=== PATIENT | female | born 1995 | race Two or more races ===

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

== ENCOUNTER 2017-04-18 03:37 | Emergency (ER) | payer MEDICAID ==
[2017-04-18 03:49] VITALS: RESP 16; TEMP 98.6
[2017-04-18 03:50] LABS: % IMMATURE GRANULYOCYTES 0.4 % (0.0-1.1); ABSOLUTE IMMATURE GRANULOCYTES 0.05 10^3/uL (0.00-0.10); ADD DIFF? NO; ADD MORPH? NO; ADD SCAN? NO; ATYPICAL LYMPHOCYTE FLAG 10 (0-99); FRAGMENT RBC FLAG 0 (0-99); HEMATOCRIT 44.1 % (38.0-47.0); HEMOGLOBIN 14.1 g/dL (12.6-16.3); LEFT SHIFT FLG 0 (0-99); LIPEMIA HEMOLYSIS FLAG 80 (0-99); MEAN CELL HEMOGLOBIN 26.1 pg (27.9-34.1); MEAN CELL VOLUME 81.7 fL (81.5-99.8); MEAN PLATELET VOLUME 10.7 fL (8.7-11.7); PLATELET CLUMPS FLAG 0 (0-99); PLATELET COUNT 310 10^3/uL (150-400)
--- NOTE | 2017-04-18 03:50 | CPEKG ---
Heart Rate: 65 RR Interval: 923 P-R Interval: 148 QRSD Interval: 78 QT Interval: 372 QTC Interval: 387 P [place]: 57 QRS [place]: 48 T Wave [place]: 45 EKG Severity - NORMAL ECG - EKG Impression: SINUS RHYTHM Electronically Signed By: Tomas Morrison 18-Apr-2017 13:56:48
[2017-04-18 03:58] LABS: ANION GAP 15 mEq/L (8-16); CALCIUM 9.9 mg/dL (8.5-10.4); CARBON DIOXIDE 24 mEq/l (22-31); CHLORIDE 104 mEq/L (97-110); CREATININE 0.8 mg/dL (0.6-1.0); GLOMERULAR FILTRATION RATE > 60; GLUCOSE 103 mg/dL (70-100); POTASSIUM 4.3 mEq/L (3.5-5.2); SODIUM 143 mEq/L (134-144)
[2017-04-18] MEDS ORDERED: NS 1,000 ML IV ONE ×2 (04:35)
--- NOTE | 2017-04-18 04:48 | EDPHY ---
H & P Stated Complaint: pt says was walking to her car, began to feel strange, had syncopal episode Time Seen by Provider: 04/18/17 03:44 HPI/ROS: Chief Complaint: Syncope HPI: 22-year-old woman was out with friends stef. Will walking to her car when she became lightheaded and had a syncopal episode, landing on her face. She is complaining of pain in her mouth and side of her head. Patient denies drinking alcohol this evening. Denies any recent illness. No fevers or chills. No nausea or vomiting. Has otherwise been in her usual state of health. ROS: 10 point Review of Systems is negative except as noted in the HPI. PMH: An autoimmune disorder that she does not know the name of Social History: No smoking, no alcohol, no recreational drug use Family History: non-contributory Physical Exam: Gen: Awake, Alert, No Distress HEENT: Nose: no rhinorrhea Eyes: PERRLA, EOMI Mouth: Moist mucosa she has tenderness with palpation of her left upper incisor but there is no fracture. There is no gingival bleeding or deformity. She has a laceration which is not through and through on her lower lip approximately 5 mm in length. Neck: Supple, no JVD Chest: nontender, lungs clear to auscultation Heart: S1, S2 normal, no murmur Abd: Soft, non-tender, no guarding Back: no CVA tenderness, no midline tenderness Ext: no edema, non-tender Skin: no rash Neuro: CN II-XII intact, Sensation grossly intact, Strength 5/5 in bilateral upper and lower extremities - Personal History Tetanus Vaccine Date: within 10 yrs - Medical/Surgical History Hx Asthma: Yes Hx Chronic Respiratory Disease: No Hx Diabetes: No Hx Cardiac Disease: No Hx Renal Disease: No Hx Cirrhosis: No Hx Alcoholism: No Hx HIV/AIDS: No Hx Splenectomy or Spleen Trauma: No Other PMH: ORTHO SURG. uveitis. depression. "autoimmune blood disorder" - Social History Smoking Status: Current every day smoker Constitutional: Initial Vital Signs Temperature (C) 37 C 04/18/17 03:47 Heart Rate 75 04/18/17 03:47 Respiratory Rate 16 04/18/17 03:47 Blood Pressure 109/61 04/18/17 03:47 O2 Sat (%) 93 04/18/17 03:47 O2 Delivery Mode Room Air Allergies/Adverse Reactions: No Known Allergies Allergy (Verified 04/18/17 03:50) Home Medications: Medication Instructions Recorded Norgestimate-Ethinyl Estradiol 1 each PO DAILY 05/12/16 [Sprintec 28 Day Tablet] Adalimumab [Humira] 10 mg SQ Q14D 10/25/16 Albuterol [Proventil Inhaler HFA 1 - 2 puffs IH DAILY PRN 10/25/16 (*)] Amitriptyline HCl [Elavil] 25 mg PO HS 10/25/16 Folic Acid [Folic Acid 1 MG (*)] 1 mg PO DAILY 10/25/16 Methotrexate Sodium [Rheumatrex] 15 mg PO Q7D 10/25/16 Medical Decision Making - Diagnostics EKG Interpretation: ECG time 3:48 a.m., sinus rhythm with a rate of 65, normal axis, normal intervals, no acute ST or T-wave changes. Impression: Normal ECG Imaging Results: CT scan of the head and face are negative for acute injury per Dr. Deleon. Imaging: Discussed imaging studies w/ calliope player Radiologist ED Course/Re-evaluation: 22-year-old female with a syncopal episode after being out with friends tonight. She denies drinking alcohol. ECG is normal. Laboratory evaluations are unremarkable. CT scan of her head and face are negative for acute bony injury. She has a laceration and some dental pain. She did feel lightheaded when standing was given IV fluids here. She will be discharged with referral for dental follow-up - Data Points Laboratory Results: Laboratory Results 04/18/17 03:30 04/18/17 03:30 04/18/17 04/18/17 04/18/17 03:30 03:30 03:30 WBC 13.87 10^3/uL H 10^3/uL (3.80-9.50) RBC 5.40 10^6/uL H 10^6/uL (4.18-5.33) Hgb 14.1 g/dL g/dL (12.6-16.3) Hct 44.1 % % (38.0-47.0) MCV 81.7 fL fL (81.5-99.8) MCH 26.1 pg L pg (27.9-34.1) MCHC 32.0 g/dL L g/dL (32.4-36.7) RDW 15.0 % % (11.5-15.2) Plt Count 310 10^3/uL 10^3/uL (150-400) MPV 10.7 fL fL (8.7-11.7) Neut % (Auto) 73.3 % % (39.3-74.2) Lymph % (Auto) 21.7 % % (15.0-45.0) [place] % (Auto) 3.7 % L % (4.5-13.0) Eos % (Auto) 0.6 % % (0.6-7.6) Baso % (Auto) 0.3 % % (0.3-1.7) Nucleat RBC Rel Count 0.0 % % (0.0-0.2) Absolute Neuts (auto) 10.17 10^3/uL H 10^3/uL (1.70-6.50) Absolute Lymphs (auto) 3.01 10^3/uL H 10^3/uL (1.00-3.00) Absolute Monos (auto) 0.51 10^3/uL 10^3/uL (0.30-0.80) Absolute Eos (auto) 0.09 10^3/uL 10^3/uL (0.03-0.40) Absolute Basos (auto) 0.04 10^3/uL 10^3/uL (0.02-0.10) Absolute Nucleated RBC 0.00 10^3/uL 10^3/uL (0-0.01) Immature Gran % 0.4 % % (0.0-1.1) Immature Gran # 0.05 10^3/uL 10^3/uL (0.00-0.10) Sodium 143 mEq/L mEq/L (134-144) Potassium 4.3 mEq/L mEq/L (3.5-5.2) Chloride 104 mEq/L mEq/L (97-110) Carbon Dioxide 24 mEq/l mEq/l (22-31) Anion Gap 15 mEq/L mEq/L (8-16) BUN 16 mg/dL mg/dL (7-23) Creatinine 0.8 mg/dL mg/dL (0.6-1.0) Estimated GFR > 60 Glucose 103 mg/dL H mg/dL (70-100) Calcium 9.9 mg/dL mg/dL (8.5-10.4) Beta HCG, Qual NEGATIVE Medications Given: Discontinued Medications Sodium Chloride (Ns) 1,000 mls @ 0 mls/hr IV ONCE ONE PRN Reason: Wide Open Stop: 04/18/17 04:36 Last Admin: 04/18/17 04:38 Dose: 1,000 mls Sodium Chloride (Ns) 1,000 mls @ 0 mls/hr IV ONCE ONE PRN Reason: Wide Open Stop: 04/18/17 04:36 Last Admin: 04/18/17 04:39 Dose: 1,000 mls Departure - Departure Disposition: Home, Routine, Self-Care Clinical Impression: Syncope, Dental trauma, Lip laceration Condition: Good Instructions: Acute Dental Trauma (ED), Laceration Without Closure (ED), Syncope (ED) Additional Instructions: Follow up with a dentist in the next 2-3 days. Return to the emergency depart for increasing lightheadedness, fainting, nausea , vomiting, chest pain, shortness of breath, or any other concerns. Referrals: [facility] [Outside] - As per Instructions
[2017-04-18 06:09] VITALS: BP 94/63; PULSE 71; O2SAT 93
== END 2017-04-18 06:10 | disposition home or self-care (01) ==
LOC: EDUNIT#
DX: S01.511A Laceration without foreign body of lip, initial encounter (principal); R55 Syncope and collapse; J45.909 Unspecified asthma, uncomplicated; F17.200 Nicotine dependence, unspecified, uncomplicated; W18.39XA Other fall on same level, initial encounter; Y99.8 Other external cause status; Y93.01 Activity, walking, marching and hiking

== ENCOUNTER 2017-05-18 08:27 | Emergency (ER) | payer MEDICAID ==
[2017-05-18 08:33] VITALS: TEMP 97.5
[2017-05-18] MEDS ORDERED: NS 1,000 ML IV ONE (09:01)
[2017-05-18] MEDS ORDERED: ONDANSETRON 4 MG/2 ML VIAL IVP ONE ×2 (09:01→10:26)
--- NOTE | 2017-05-18 09:28 | EDPHY ---
H & P Time Seen by Provider: 05/18/17 09:00 HPI/ROS: CHIEF COMPLAINT: Abdominal pain, vomiting HISTORY OF PRESENT ILLNESS: 22-year-old female presents with abdominal pain and vomiting. She awoke at 5:00 a.m. this morning with epigastric pain, followed by multiple episodes of vomiting. The epigastric pain is moderate and persistent. Unable to tolerate oral fluids. No fever and no diarrhea. No previous similar symptoms. Last menstrual period 1 month ago and regular. REVIEW OF SYSTEMS: Constitutional: No fever, no chills Eyes: No visual changes ENT: No sore throat Respiratory: No cough, no shortness of breath Cardiac: No chest pain Genitourinary: No hematuria, no dysuria Musculoskeletal: No leg pain or swelling Skin: No rash Neurological: No headache, no weakness Psychiatric: No depression Past Medical/Surgical History: Depression Social History: No recent alcohol No drug use PCP: Dr. Linh michel Ripley Smoking Status: Current every day smoker Physical Exam: General Appearance: Alert, appears uncomfortable Eyes: Pupils equal and round, no conjunctival pallor or injection ENT, Mouth: Mucous membranes moist Neck: Normal inspection Respiratory: Lungs are clear to auscultation Cardiovascular: Regular rate and rhythm Gastrointestinal: Abdomen is soft, epigastric tenderness, no peritoneal signs Neurological: A&O, nonfocal exam Skin: Warm and dry, no rash Extremities: Nontender, no pedal edema Psychiatric: Mood and affect normal Constitutional: Initial Vital Signs Temperature (C) 36.4 C 05/18/17 08:30 Heart Rate 86 05/18/17 08:30 Respiratory Rate 18 05/18/17 08:30 Blood Pressure 115/77 05/18/17 08:30 O2 Sat (%) 96 05/18/17 08:30 O2 Delivery Mode Room Air Allergies/Adverse Reactions: No Known Allergies Allergy (Verified 05/18/17 08:29) Home Medications: Medication Instructions Recorded Ondansetron Odt [Zofran Odt 4 mg 4 mg PO Q4 PRN #6 tab 05/18/17 (*)] Medical Decision Making ED Course/Re-evaluation: IV normal saline 1 L and Zofran 4 mg IV given. 10:30 a.m.-I reassessed this patient. She feels somewhat better. Continues to have nausea. Abdominal exam remains benign. Repeat dose of Zofran 4 mg IV given, followed by Phenergan 12.5mg IV. Better after meds, abd exam remains benign. Bakari oral fluids well. Differential Diagnosis: Differential diagnosis includes though it is not limited to appendicitis, cholecystitis, diverticulitis, pyelonephritis, bowel perforation, small bowel obstruction. - Data Points Laboratory Results: Laboratory Results 05/18/17 09:10 05/18/17 09:10 05/18/17 05/18/17 05/18/17 09:10 09:10 09:10 WBC 11.73 10^3/uL H 10^3/uL (3.80-9.50) RBC 5.26 10^6/uL 10^6/uL (4.18-5.33) Hgb 14.0 g/dL g/dL (12.6-16.3) Hct 42.7 % % (38.0-47.0) MCV 81.2 fL L fL (81.5-99.8) MCH 26.6 pg L pg (27.9-34.1) MCHC 32.8 g/dL g/dL (32.4-36.7) RDW 14.5 % % (11.5-15.2) Plt Count 318 10^3/uL 10^3/uL (150-400) MPV 10.8 fL fL (8.7-11.7) Neut % (Auto) 89.5 % H % (39.3-74.2) Lymph % (Auto) 7.2 % L % (15.0-45.0) [place] % (Auto) 2.4 % L % (4.5-13.0) Eos % (Auto) 0.1 % L % (0.6-7.6) Baso % (Auto) 0.3 % % (0.3-1.7) Nucleat RBC Rel Count 0.0 % % (0.0-0.2) Absolute Neuts (auto) 10.50 10^3/uL H 10^3/uL (1.70-6.50) Absolute Lymphs (auto) 0.85 10^3/uL L 10^3/uL (1.00-3.00) Absolute Monos (auto) 0.28 10^3/uL L 10^3/uL (0.30-0.80) Absolute Eos (auto) 0.01 10^3/uL L 10^3/uL (0.03-0.40) Absolute Basos (auto) 0.03 10^3/uL 10^3/uL (0.02-0.10) Absolute Nucleated RBC 0.00 10^3/uL 10^3/uL (0-0.01) Immature Gran % 0.5 % % (0.0-1.1) Immature Gran # 0.06 10^3/uL 10^3/uL (0.00-0.10) Sodium 142 mEq/L mEq/L (134-144) Potassium 4.4 mEq/L mEq/L (3.5-5.2) Chloride 102 mEq/L mEq/L (97-110) Carbon Dioxide 24 mEq/l mEq/l (22-31) Anion Gap 16 mEq/L mEq/L (8-16) BUN 20 mg/dL mg/dL (7-23) Creatinine 0.9 mg/dL mg/dL (0.6-1.0) Estimated GFR > 60 Glucose 136 mg/dL H mg/dL (70-100) Calcium 9.9 mg/dL mg/dL (8.5-10.4) Total Bilirubin 0.4 mg/dL mg/dL (0.1-1.4) Conjugated Bilirubin 0.3 mg/dL mg/dL (0.0-0.5) Unconjugated Bilirubin 0.1 mg/dL mg/dL (0.0-1.1) AST 23 IU/L IU/L (14-46) ALT 28 IU/L IU/L (9-52) Alkaline Phosphatase 87 IU/L IU/L (38-126) Total Protein 8.0 g/dL g/dL (6.3-8.2) Albumin 4.6 g/dL g/dL (3.5-5.0) Lipase 96 IU/L IU/L (23-300) Beta HCG, Qual NEGATIVE Medications Given: Discontinued Medications Sodium Chloride (Ns) 1,000 mls @ 0 mls/hr IV EDNOW ONE; Wide Open PRN Reason: Protocol Stop: 05/18/17 09:02 Last Admin: 05/18/17 09:36 Dose: 1,000 mls Ondansetron HCl (Zofran) 4 mg IVP EDNOW ONE Stop: 05/18/17 09:02 Last Admin: 05/18/17 09:38 Dose: 4 mg Ondansetron HCl (Zofran) 4 mg IVP EDNOW ONE Stop: 05/18/17 10:27 Last Admin: 05/18/17 10:49 Dose: 4 mg Promethazine HCl (Phenergan) 12.5 mg IVP EDNOW ONE Stop: 05/18/17 11:41 Last Admin: 05/18/17 11:52 Dose: 12.5 mg Departure - Departure Disposition: Home, Routine, Self-Care Clinical Impression: Acute gastritis Qualifiers: Gastritis type: unspecified gastritis Gastritis bleeding: without bleeding Qualified Code(s): K29.00 - Acute gastritis without bleeding Vomiting Qualifiers: Vomiting type: unspecified Vomiting Intractability: non-intractable Nausea presence: with nausea Qualified Code(s): R11.2 - Nausea with vomiting, unspecified Condition: Good Instructions: Gastritis (ED), Acute Nausea and Vomiting (ED) Referrals: Flaquita Melton MD [Primary Care Provider] - 1-2 days without fail Prescriptions: Ondansetron Odt [Zofran Odt 4 mg (*)] 4 mg PO Q4 PRN #6 tab PRN Reason: Nausea
[2017-05-18 09:30] LABS: % IMMATURE GRANULYOCYTES 0.5 % (0.0-1.1); ABSOLUTE IMMATURE GRANULOCYTES 0.06 10^3/uL (0.00-0.10); ADD DIFF? NO; ADD MORPH? NO; ADD SCAN? NO; ATYPICAL LYMPHOCYTE FLAG 10 (0-99); FRAGMENT RBC FLAG 0 (0-99); HEMATOCRIT 42.7 % (38.0-47.0); LEFT SHIFT FLG 0 (0-99); LIPEMIA HEMOLYSIS FLAG 80 (0-99); MEAN CELL HEMOGLOBIN 26.6 pg (27.9-34.1); MEAN CELL HEMOGLOBIN CONCENTR. 32.8 g/dL (32.4-36.7); MEAN CELL VOLUME 81.2 fL (81.5-99.8); MEAN PLATELET VOLUME 10.8 fL (8.7-11.7); PLATELET CLUMPS FLAG 20 (0-99); PLATELET COUNT 318 10^3/uL (150-400); RED BLOOD CELL COUNT 5.26 10^6/uL (4.18-5.33); RED CELL DISTRIBUTION WIDTH 14.5 % (11.5-15.2)
[2017-05-18 09:53] LABS: ALANINE AMINOTRANSFERASE 28 IU/L (9-52); ALBUMIN 4.6 g/dL (3.5-5.0); ALKALINE PHOSPHATASE 87 IU/L (38-126); ANION GAP 16 mEq/L (8-16); ASPARTATE AMINOTRANSFERASE 23 IU/L (14-46); BILIRUBIN,TOTAL 0.4 mg/dL (0.1-1.4); BILIRUBIN-CONJUGATED 0.3 mg/dL (0.0-0.5); BILIRUBIN-UNCONJUGATED 0.1 mg/dL (0.0-1.1); CALCIUM 9.9 mg/dL (8.5-10.4); CARBON DIOXIDE 24 mEq/l (22-31); CHLORIDE 102 mEq/L (97-110); CREATININE 0.9 mg/dL (0.6-1.0); GLOMERULAR FILTRATION RATE > 60; GLUCOSE 136 mg/dL (70-100); POTASSIUM 4.4 mEq/L (3.5-5.2); SODIUM 142 mEq/L (134-144)
[2017-05-18] MEDS ORDERED: PROMETHAZINE HCL 25 MG/ML INJ IVP ONE (11:40)
[2017-05-18 12:44] VITALS: BP 100/64; PULSE 60; RESP 15; O2SAT 96
== END 2017-05-18 12:44 | disposition home or self-care (01) ==
DX: K29.00 Acute gastritis without bleeding (principal); E86.9 Volume depletion, unspecified; F17.200 Nicotine dependence, unspecified, uncomplicated
CPT/HCPCS: 96374; J2405; J2550